=== PATIENT | female | born 1965 | race African-American/Black ===

== ENCOUNTER 2018-01-10 18:09 | Inpatient (IN) ==
[2018-01-10 19:16] LABS: Basophils % 0.3 % (0.0-0.8); Eosinophils # 0.4 10*3/uL (0.0-0.87); Eosinophils % 6.2 % (0.00-10.9); Hematocrit 25.5 VOL% (35.7-47.0); Hemoglobin 8.1 GM/DL (12.0-16.0); Immature Granulocytes % 0.1 %; Immature Granulocytes Absolute 0.01 #; Lymphocytes # 1.9 10*3/uL (1.4-4.0); Lymphocytes % 26.9 % (21.3-54.2); Mean Corpuscular HGB Conc 31.8 GM/DL (32-36); Mean Corpuscular Hemoglobin 30 PG (27-34); Mean Corpuscular Volume 93.4 FL (87-102); Mean Platelet Volume 11.2 FL (9.6-12.0); Monocytes # 0.6 10*3/uL (0.11-0.8); Monocytes % 8.5 % (1.7-12.7); Neutrophils # 4.2 10*3/uL (1.4-7.4); Platelet Count 222 T/CUMM (130-400); Red Blood Count 2.73 MC/CUMM (3.8-5.5); Red Cell Distribution Width 13.6 % (9.3-17.3); White Blood Count 7.2 T/CUMM (4-12)
[2018-01-10 19:44] LABS: Alanine Aminotransferase 13 U/L (13-56); Albumin 3.1 G/DL (3.4-5.0); Alkaline Phosphatase 171 U/L (45-117); Aspartate Amino Transferase 16 U/L (0-37); Bilirubin,Total < 0.39 MG/DL (0.2-1.0); Blood Urea Nitrogen 63 MG/DL (7-18); Calcium 8.5 MG/DL (8.5-10.1); Glucose 123 MG/DL (74-106); Osmolality,Calculated 293.7 MOS/KG (273-304); Sodium 138 MMOL/L (136-145); Total Protein 6.1 G/DL (6.4-8.3)
[2018-01-10 19:50] LABS: Potassium 6.3 MMOL/L (3.5-5.1)
[2018-01-10 21:18] LABS: CKMB % 1.8 %; Troponin I Only < 0.015 NG/ML (0.00-0.045)
[2018-01-10] MEDS ORDERED: SODIUM POLYSTYRENE SULFATE 15 GM/60 ML BOTTLE PO STA (22:46)
[2018-01-10] MEDS ORDERED: CALCIUM CHLORIDE 1,000 MG/10 ML SYRINGE IV STA (22:46)
[2018-01-10] MEDS ORDERED: CALCIUM CHLORIDE 1,000 MG/10 ML SYRINGE IV ONE (23:10)
[2018-01-10] MEDS ORDERED: SODIUM POLYSTYRENE SULFATE 15 GM/60 ML BOTTLE ONE (23:10)
[2018-01-11] MEDS ORDERED: GLUCAGON 1 MG VIAL IM PRN (00:38)
[2018-01-11] MEDS ORDERED: DEXTROSE 50% 25 GM/50 ML VIAL IV PRN (00:38)
[2018-01-11] MEDS ORDERED: ENOXAPARIN 30 MG/0.3 ML SYRINGE ONE (02:36)
[2018-01-11] MEDS: SODIUM CHLORIDE 0.9% 1,000 ML IV SCH ×2 (02:37→10:22)
[2018-01-11] MEDS: ENOXAPARIN 30 MG/0.3 ML SYRINGE SUBCUT SCH ×2 (02:37→10:13)
[2018-01-11] MEDS: SODIUM POLYSTYRENE SULFATE 15 GM/60 ML BOTTLE PO SCH ×2 (03:39→23:20)
[2018-01-11 04:14] LABS: Basophils % 0.4 % (0.0-0.8); Eosinophils # 0.5 10*3/uL (0.0-0.87); Eosinophils % 6.3 % (0.00-10.9); Hematocrit 23.6 VOL% (35.7-47.0); Hemoglobin 7.7 GM/DL (12.0-16.0); Immature Granulocytes % 0.4 %; Immature Granulocytes Absolute 0.03 #; Lymphocytes % 26.8 % (21.3-54.2); Mean Corpuscular HGB Conc 32.6 GM/DL (32-36); Mean Corpuscular Hemoglobin 30 PG (27-34); Mean Corpuscular Volume 91.8 FL (87-102); Mean Platelet Volume 11.5 FL (9.6-12.0); Monocytes # 0.7 10*3/uL (0.11-0.8); Monocytes % 8.9 % (1.7-12.7); Neutrophils # 4.2 10*3/uL (1.4-7.4); Neutrophils % 57.2 % (38.7-73.9); Platelet Count 204 T/CUMM (130-400); Red Blood Count 2.57 MC/CUMM (3.8-5.5); Red Cell Distribution Width 13.7 % (9.3-17.3); White Blood Count 7.3 T/CUMM (4-12)
[2018-01-11 04:15] LABS: Calcium 8.9 MG/DL (8.5-10.1); Osmolality,Calculated 296.4 MOS/KG (273-304)
[2018-01-11 04:19] LABS: Potassium 6.2 MMOL/L (3.5-5.1)
[2018-01-11 04:23] LABS: % Iron Saturation 21.5 % (18-50)
[2018-01-11] MEDS: INSULIN LISPRO 100 UNIT/ML SUBCUT SCH ×4 (07:33→20:46)
[2018-01-11] MEDS ORDERED: INSULIN LISPRO 100 UNIT/ML ONE (11:25)
[2018-01-11] MEDS: SODIUM BICARB INJ 50 MEQ in SODIUM CHLORIDE 0.45% 1,000 ML IV SCH (17:09)
[2018-01-11 17:28] LABS: Apearance,Urine CLEAR (Clear); Bilirubin,Urine Negative (Negative); Blood, Urine Small mg/dL (Negative); Glucose,Urine (UA) 150 mg/dL (Negative); Ketones,Urine Negative (Negative); Nitrite,Urine Negative (Negative); Protein,Urine >=500 MG/DL; RBC,Urine 4 /HPF (0-4); Squamous Epithelial Cell,Urine Occasional /HPF (0-10); Urine Color Straw (Yellow); Urine Specific Gravity 1.007 (1.001-1.035); Urine Urobilinogen < 2.0 EU/DL (0.2-1.0); WBC,Urine <1 /HPF (0-6)
[2018-01-11 18:37] LABS: Microalbum/Creat Ratio Random 7562.5 RATIO (0-30)
[2018-01-11] MEDS: SODIUM BICARBONATE 650 MG TABLET PO SCH (20:47)
[2018-01-12] MEDS: SODIUM BICARB INJ 50 MEQ in SODIUM CHLORIDE 0.45% 1,000 ML IV SCH ×2 (00:37→09:03)
[2018-01-12] MEDS: ENOXAPARIN 30 MG/0.3 ML SYRINGE SUBCUT SCH (05:17)
[2018-01-12 05:34] LABS: Basophils % 0.4 % (0.0-0.8); Eosinophils # 0.4 10*3/uL (0.0-0.87); Eosinophils % 5.8 % (0.00-10.9); Hematocrit 22.9 VOL% (35.7-47.0); Hemoglobin 7.2 GM/DL (12.0-16.0); Immature Granulocytes % 0.3 %; Immature Granulocytes Absolute 0.02 #; Lymphocytes # 2.3 10*3/uL (1.4-4.0); Lymphocytes % 32.2 % (21.3-54.2); Mean Corpuscular HGB Conc 31.4 GM/DL (32-36); Mean Corpuscular Hemoglobin 30 PG (27-34); Mean Corpuscular Volume 93.9 FL (87-102); Mean Platelet Volume 11.8 FL (9.6-12.0); Monocytes # 0.8 10*3/uL (0.11-0.8); Neutrophils # 3.6 10*3/uL (1.4-7.4); Neutrophils % 50.3 % (38.7-73.9); Platelet Count 194 T/CUMM (130-400); Red Blood Count 2.44 MC/CUMM (3.8-5.5); Red Cell Distribution Width 13.2 % (9.3-17.3); White Blood Count 7.1 T/CUMM (4-12)
[2018-01-12 06:28] LABS: Calcium 7.7 MG/DL (8.5-10.1); Free T4 (Free Thyroxine) 0.85 NG/DL (0.76-1.46); Osmolality,Calculated 295.3 MOS/KG (273-304); Potassium 4.9 MMOL/L (3.5-5.1); Risk Ratio 3.5; VLDL CHOLESTEROL 22.6 MG/DL
[2018-01-12] MEDS: SODIUM BICARBONATE 650 MG TABLET PO SCH ×2 (08:57→21:25)
[2018-01-12] MEDS: SODIUM POLYSTYRENE SULFATE 15 GM/60 ML BOTTLE PO SCH (08:57)
[2018-01-12] MEDS: INSULIN LISPRO 100 UNIT/ML SUBCUT SCH ×4 (09:06→21:26)
[2018-01-12] MEDS ORDERED: SKIN HEALING OINT (AQUAPHOR) 50 GM TUBE TOP PRN (11:24)
[2018-01-12] MEDS: amLODIPine 10 MG TABLET PO SCH (11:56)
[2018-01-12] MEDS: ASPIRIN EC 81 MG TABLET PO SCH (11:56)
[2018-01-12] MEDS: CARVEDILOL 12.5 MG TABLET PO SCH ×2 (11:56→21:26)
[2018-01-12] MEDS ORDERED: MAGNESIUM SULF RIDER 4 GM in PREMIX 1 EACH IV PRN (12:38)
[2018-01-12] MEDS ORDERED: MAGNESIUM SULF RIDER 2 GM in PREMIX 1 EACH IV PRN (12:38)
[2018-01-12 13:59] LABS: Hematocrit 25.2 VOL% (35.7-47.0); Hemoglobin 8.3 GM/DL (12.0-16.0)
[2018-01-12] MEDS ORDERED: ATORVASTATIN 40 MG TABLET PO SCH (21:00)
[2018-01-12] MEDS: hydrALAZINE 20 MG/1 ML VIAL IV PRN (21:31)
[2018-01-13] MEDS: SODIUM BICARB INJ 50 MEQ in SODIUM CHLORIDE 0.45% 1,000 ML IV SCH ×2 (01:03→16:04)
[2018-01-13] MEDS ORDERED: ACETAMINOPHEN 500 MG TABLET PO PRN (01:09)
[2018-01-13] MEDS: ENOXAPARIN 30 MG/0.3 ML SYRINGE SUBCUT SCH (06:20)
[2018-01-13] MEDS: SODIUM BICARBONATE 650 MG TABLET PO SCH (08:24)
[2018-01-13] MEDS: amLODIPine 10 MG TABLET PO SCH (08:24)
[2018-01-13] MEDS: ASPIRIN EC 81 MG TABLET PO SCH (08:25)
[2018-01-13] MEDS: INSULIN LISPRO 100 UNIT/ML SUBCUT SCH ×2 (08:25→11:43)
[2018-01-13] MEDS: hydrALAZINE 20 MG/1 ML VIAL IV PRN (08:25)
[2018-01-13] MEDS: SODIUM POLYSTYRENE SULFATE 15 GM/60 ML BOTTLE PO SCH (08:25)
[2018-01-13] MEDS: CARVEDILOL 12.5 MG TABLET PO SCH (08:25)
[2018-01-13 09:02] LABS: HIV Screen (Exposures Only) Negative (Negative)
[2018-01-13 09:30] LABS: Albumin 2.6 G/DL (3.4-5.0); Calcium 7.5 MG/DL (8.5-10.1); Osmolality,Calculated 295.4 MOS/KG (273-304); Potassium 4.5 MMOL/L (3.5-5.1)
[2018-01-13 12:31] LABS: Hepatitis A Ab IgM Quant 0.08 Index; Hepatitis A Ab IgM Result Negative (Negative); Hepatitis B Core IgM Quant 0.23 Index; Hepatitis B Core IgM Result Negative (Negative); Hepatitis B Surface Ag Quant < 0.10 Index; Hepatitis B Surface Ag Result Negative (Negative); Hepatitis C Virus Ab Quant 0.07 Index; Hepatitis C Virus Ab Result Negative (Negative)
[2018-01-13] MEDS ORDERED: CARVEDILOL 25 MG TABLET PO SCH (12:34)
[2018-01-13 15:03] VITALS: BP 168/81
[2018-01-14 13:56] LABS: Glomerular Basement Membrane A < 0.2 U; Myeloperoxidase Antibody < 0.2 U
== END 2018-01-13 15:55 | disposition home or self-care (01) | DRG 683 ==
LOC: N.ED 18:09 → N.EDINP 23:34 → SUATTDRO 23:34 → N.TELEN 01-11 14:28
PROVIDERS: ADMIT Family Medicine; ATTEND Internal Medicine

== ENCOUNTER 2019-10-08 14:01 | Inpatient (IN) ==
[2019-10-08 14:56] LABS: Basophils % 0.2 % (0.0-0.8); Eosinophils # 0.6 10*3/uL (0.0-0.87); Eosinophils % 6.3 % (0.00-10.9); Immature Granulocytes % 1.4 %; Immature Granulocytes Absolute 0.13 #; Lymphocytes # 1.1 10*3/uL (1.4-4.0); Lymphocytes % 11.4 % (21.3-54.2); Mean Corpuscular HGB Conc 29.7 GM/DL (32-36); Mean Corpuscular Volume 90.7 FL (87-102); Mean Platelet Volume 9.9 FL (9.6-12.0); Monocytes % 7.4 % (1.7-12.7); NRBC # 0.02 10*3/uL; Neutrophils % 73.3 % (38.7-73.9); Platelet Count 340 T/CUMM (130-400); Red Blood Count 1.82 MC/CUMM (3.8-5.5); Red Cell Distribution Width 16.3 % (9.3-17.3); White Blood Count 9.4 T/CUMM (4-12)
[2019-10-08 15:01] LABS: Hemoglobin 4.9 GM/DL (12.0-16.0)
[2019-10-08 15:02] LABS: Hematocrit 16.5 VOL% (35.7-47.0)
[2019-10-08 15:06] LABS: PT Patient Result 10.4 SECS (9.6-12.2); Partial Thromboplastin Time 25.9 SECS (20.8-36.0)
[2019-10-08 15:18] LABS: Alanine Aminotransferase 12 U/L (13-56); Albumin 2.8 G/DL (3.4-5.0); Alkaline Phosphatase 113 U/L (45-117); Aspartate Amino Transferase 11 U/L (0-37); Bilirubin,Total < 0.39 MG/DL (0.2-1.0); Blood Urea Nitrogen 79 MG/DL (7-18); Calcium 8.2 MG/DL (8.5-10.1); Estimated Glom Filtration Rate 9 ML/MIN; Glucose 93 MG/DL (74-106); Osmolality,Calculated 302.4 MOS/KG (273-304); Total Protein 6.9 G/DL (6.4-8.3)
[2019-10-08 15:56] LABS: Apearance,Urine CLEAR (Clear); Bilirubin,Urine Negative (Negative); Blood, Urine Small mg/dL (Negative); Glucose,Urine (UA) Negative (Negative); Hyaline Casts,Urine 3 /LPF (0-3); Ketones,Urine Negative (Negative); Mucus,Urine Occasional /LPF (Occasional); Nitrite,Urine Negative (Negative); Protein,Urine 100 MG/DL; RBC,Urine 1 /HPF (0-4); Squamous Epithelial Cell,Urine Occasional /HPF (0-10); Urine Color Straw (Yellow); Urine Urobilinogen < 2.0 EU/DL (0.2-1.0)
[2019-10-08] MEDS ORDERED: diphenhydrAMINE 50 MG/1 ML VIAL IV PRN (16:06)
[2019-10-08] MEDS ORDERED: SODIUM CHLORIDE 0.9% 1,000 ML IV PRN (16:06)
[2019-10-08] MEDS ORDERED: FUROSEMIDE 20 MG/2 ML VIAL IV PRN (16:06)
[2019-10-08] MEDS ORDERED: ACETAMINOPHEN 325 MG TABLET PO PRN (16:33)
[2019-10-08] MEDS ORDERED: GLUCAGON 1 MG VIAL IM PRN (17:08)
[2019-10-08] MEDS ORDERED: DEXTROSE 10% 250 ML BAG IV PRN (17:08)
[2019-10-08 18:52] LABS: Hemoglobin 5.3 GM/DL (12.0-16.0)
[2019-10-08 18:53] LABS: Hematocrit 17.1 VOL% (35.7-47.0)
[2019-10-08] MEDS: INSULIN LISPRO 100 UNIT/ML SUBCUT SCH (20:28)
[2019-10-08] MEDS: PANTOPRAZOLE INJ 200 MG in SODIUM CHLORIDE 0.9% 250 ML IV SCH (20:52)
[2019-10-08] MEDS: SODIUM CHLORIDE 0.9% 1,000 ML IV SCH (20:52)
[2019-10-08] MEDS: AZITHROMYCIN INJ 500 MG in SODIUM CHLORIDE 0.9% 250 ML IV SCH (20:53)
[2019-10-08] MEDS: cefTRIAXone 1,000 MG in SYRINGE 1 EACH IV SCH (21:08)
[2019-10-08] MEDS: ONDANSETRON 4 MG/2 ML VIAL IV PRN (21:12)
[2019-10-09] MEDS ORDERED: FUROSEMIDE 20 MG/2 ML VIAL IV PRN ×2 (00:17→00:30)
[2019-10-09 04:48] LABS: PT Patient Result 10.7 SECS (9.6-12.2)
[2019-10-09 05:04] LABS: Basophils % 0.3 % (0.0-0.8); Eosinophils # 0.6 10*3/uL (0.0-0.87); Hematocrit 25.6 VOL% (35.7-47.0); Immature Granulocytes % 1.4 %; Immature Granulocytes Absolute 0.17 #; Lymphocytes # 1.2 10*3/uL (1.4-4.0); Lymphocytes % 10.5 % (21.3-54.2); Mean Corpuscular Volume 88.9 FL (87-102); Mean Platelet Volume 9.7 FL (9.6-12.0); Monocytes % 9.2 % (1.7-12.7); Neutrophils % 73.6 % (38.7-73.9); Platelet Count 306 T/CUMM (130-400); Red Cell Distribution Width 14.9 % (9.3-17.3); White Blood Count 11.8 T/CUMM (4-12)
[2019-10-09 05:05] LABS: Red Blood Count 2.88 MC/CUMM (3.8-5.5)
[2019-10-09 05:06] LABS: Hemoglobin 8.2 GM/DL (12.0-16.0)
[2019-10-09 05:13] LABS: Albumin 2.7 G/DL (3.4-5.0); Calcium 7.9 MG/DL (8.5-10.1); Osmolality,Calculated 306.8 MOS/KG (273-304); Risk Ratio 5.82; Thyroid Stimulating Hormone 1.75 uIU/ml (0.358-3.74); Total Protein 6.7 G/DL (6.4-8.3); VLDL CHOLESTEROL 29.6 MG/DL
[2019-10-09] MEDS ORDERED: MAGNESIUM SULF RIDER 1 GM in PREMIX 1 EACH IV ONE (08:13)
[2019-10-09] MEDS: INSULIN LISPRO 100 UNIT/ML SUBCUT SCH ×4 (08:35→21:00)
[2019-10-09] MEDS: amLODIPine 10 MG TABLET PO SCH (08:36)
[2019-10-09 08:37] LABS: Hemoglobin 8.3 GM/DL (12.0-16.0)
[2019-10-09] MEDS: SODIUM CHLORIDE 0.9% 1,000 ML IV SCH (08:37)
[2019-10-09] MEDS: SODIUM BICARB INJ 50 MEQ in SODIUM CHLORIDE 0.45% 1,000 ML IV SCH ×2 (09:21→22:22)
[2019-10-09 12:33] LABS: Hematocrit 30.8 VOL% (35.7-47.0); Hemoglobin 9.9 GM/DL (12.0-16.0)
[2019-10-09] MEDS: cefTRIAXone 1,000 MG in SYRINGE 1 EACH IV SCH (16:56)
[2019-10-09] MEDS: AZITHROMYCIN INJ 500 MG in SODIUM CHLORIDE 0.9% 250 ML IV SCH (17:00)
[2019-10-09] MEDS: PANTOPRAZOLE INJ 200 MG in SODIUM CHLORIDE 0.9% 250 ML IV SCH (17:13)
[2019-10-09] MEDS: PANTOPRAZOLE 40 MG VIAL IV SCH (20:48)
[2019-10-09] MEDS: carvediloL 25 MG TABLET PO SCH (20:48)
[2019-10-10 05:29] LABS: PT Patient Result 10.6 SECS (9.6-12.2)
[2019-10-10 05:40] LABS: Osmolality,Calculated 298.4 MOS/KG (273-304)
[2019-10-10 05:43] LABS: Albumin 2.5 G/DL (3.4-5.0); Bilirubin,Total 0.4 MG/DL (0.2-1.0); Calcium 7.7 MG/DL (8.5-10.1); Osmolality,Calculated 300.1 MOS/KG (273-304); Total Protein 6.2 G/DL (6.4-8.3)
[2019-10-10 06:49] LABS: Basophils % 0.3 % (0.0-0.8); Eosinophils # 0.5 10*3/uL (0.0-0.87); Eosinophils % 4.4 % (0.00-10.9); Hematocrit 26.3 VOL% (35.7-47.0); Hemoglobin 8.6 GM/DL (12.0-16.0); Immature Granulocytes % 1.3 %; Immature Granulocytes Absolute 0.13 #; Lymphocytes # 1.2 10*3/uL (1.4-4.0); Lymphocytes % 11.6 % (21.3-54.2); Mean Corpuscular HGB Conc 32.7 GM/DL (32-36); Mean Corpuscular Volume 87.4 FL (87-102); Mean Platelet Volume 9.7 FL (9.6-12.0); Monocytes % 7.8 % (1.7-12.7); Neutrophils % 74.6 % (38.7-73.9); Platelet Count 324 T/CUMM (130-400); Red Blood Count 3.01 MC/CUMM (3.8-5.5); Red Cell Distribution Width 15.6 % (9.3-17.3); White Blood Count 10.1 T/CUMM (4-12)
[2019-10-10 07:20] LABS: Hepatitis B Core IgM Quant < 0.05 Index; Hepatitis B Surface Ag Quant < 0.10 Index; Hepatitis B Surface Ag Result Negative (Negative); Hepatitis C Virus Ab Result Negative (Negative)
[2019-10-10] MEDS ORDERED: LIDOCAINE 100 MG/5 ML SYRINGE ONE (10:00)
[2019-10-10] MEDS ORDERED: PROPOFOL 200 MG/20 ML VIAL IV ONE (10:00)
[2019-10-10] MEDS: INSULIN LISPRO 100 UNIT/ML SUBCUT SCH ×4 (11:07→22:21)
[2019-10-10] MEDS: cefTRIAXone 1,000 MG in SYRINGE 1 EACH IV SCH (15:15)
[2019-10-10] MEDS: carvediloL 25 MG TABLET PO SCH ×2 (15:15→21:49)
[2019-10-10] MEDS: amLODIPine 10 MG TABLET PO SCH (15:15)
[2019-10-10] MEDS: PANTOPRAZOLE 40 MG VIAL IV SCH (15:15)
[2019-10-10] MEDS: AZITHROMYCIN 250 MG TABLET PO SCH (15:15)
[2019-10-10] MEDS: SODIUM BICARB INJ 50 MEQ in SODIUM CHLORIDE 0.45% 1,000 ML IV SCH (17:26)
[2019-10-10] MEDS: PANTOPRAZOLE 40 MG TABLET PO SCH (21:46)
[2019-10-11] MEDS: SODIUM BICARB INJ 50 MEQ in SODIUM CHLORIDE 0.45% 1,000 ML IV SCH ×2 (03:49→17:30)
[2019-10-11 06:18] LABS: Basophils % 0.2 % (0.0-0.8); Eosinophils # 0.4 10*3/uL (0.0-0.87); Eosinophils % 4.4 % (0.00-10.9); Hematocrit 21.9 VOL% (35.7-47.0); Hemoglobin 7.1 GM/DL (12.0-16.0); Immature Granulocytes % 1.3 %; Immature Granulocytes Absolute 0.11 #; Lymphocytes # 1.3 10*3/uL (1.4-4.0); Lymphocytes % 14.8 % (21.3-54.2); Mean Corpuscular HGB Conc 32.4 GM/DL (32-36); Mean Corpuscular Volume 87.6 FL (87-102); Mean Platelet Volume 9.9 FL (9.6-12.0); Neutrophils % 68.3 % (38.7-73.9); Platelet Count 270 T/CUMM (130-400); Red Cell Distribution Width 15.4 % (9.3-17.3); White Blood Count 8.5 T/CUMM (4-12)
[2019-10-11 06:20] LABS: PT Patient Result 10.5 SECS (9.6-12.2)
[2019-10-11 07:00] LABS: Albumin 2.4 G/DL (3.4-5.0); Bilirubin,Total 0.4 MG/DL (0.2-1.0); Calcium 7.5 MG/DL (8.5-10.1); Total Protein 6.1 G/DL (6.4-8.3)
[2019-10-11 07:13] LABS: Calcium 7.5 MG/DL (8.5-10.1); Osmolality,Calculated 295.5 MOS/KG (273-304)
[2019-10-11] MEDS ORDERED: MAGNESIUM SULF RIDER 4 GM in PREMIX 1 EACH IV PRN (08:20)
[2019-10-11] MEDS ORDERED: MAGNESIUM SULF RIDER 2 GM in PREMIX 1 EACH IV PRN (08:20)
[2019-10-11] MEDS: INSULIN LISPRO 100 UNIT/ML SUBCUT SCH ×4 (09:34→21:30)
[2019-10-11] MEDS: amLODIPine 10 MG TABLET PO SCH (09:40)
[2019-10-11] MEDS: AZITHROMYCIN 250 MG TABLET PO SCH (09:40)
[2019-10-11] MEDS: carvediloL 25 MG TABLET PO SCH ×2 (09:41→21:31)
[2019-10-11] MEDS: cefTRIAXone 1,000 MG in SYRINGE 1 EACH IV SCH (09:41)
[2019-10-11] MEDS: PANTOPRAZOLE 40 MG TABLET PO SCH ×2 (09:41→21:31)
[2019-10-11] MEDS: hydrALAZINE 25 MG TABLET PO SCH ×2 (09:43→21:31)
[2019-10-11 09:51] LABS: Hematocrit 22.8 VOL% (35.7-47.0); Hemoglobin 7.4 GM/DL (12.0-16.0)
[2019-10-11] MEDS ORDERED: SODIUM CHLORIDE 0.9% 1,000 ML IV PRN (11:51)
[2019-10-11] MEDS: ONDANSETRON 4 MG/2 ML VIAL IV PRN (14:02)
[2019-10-11 19:14] LABS: Hematocrit 26.2 VOL% (35.7-47.0); Hemoglobin 8.5 GM/DL (12.0-16.0)
[2019-10-12] MEDS: SODIUM BICARB INJ 50 MEQ in SODIUM CHLORIDE 0.45% 1,000 ML IV SCH ×3 (04:17→17:05)
[2019-10-12 07:19] LABS: Basophils % 0.3 % (0.0-0.8); Eosinophils # 0.4 10*3/uL (0.0-0.87); Eosinophils % 5.2 % (0.00-10.9); Hematocrit 27.2 VOL% (35.7-47.0); Hemoglobin 8.9 GM/DL (12.0-16.0); Immature Granulocytes Absolute 0.07 #; Lymphocytes # 1.4 10*3/uL (1.4-4.0); Lymphocytes % 18.9 % (21.3-54.2); Mean Corpuscular HGB Conc 32.7 GM/DL (32-36); Mean Corpuscular Volume 87.2 FL (87-102); Mean Platelet Volume 9.7 FL (9.6-12.0); Monocytes % 10.6 % (1.7-12.7); Platelet Count 259 T/CUMM (130-400); Red Blood Count 3.12 MC/CUMM (3.8-5.5); Red Cell Distribution Width 15.5 % (9.3-17.3); White Blood Count 7.2 T/CUMM (4-12)
[2019-10-12 07:45] LABS: Calcium 7.3 MG/DL (8.5-10.1); Osmolality,Calculated 294.4 MOS/KG (273-304)
[2019-10-12] MEDS: INSULIN LISPRO 100 UNIT/ML SUBCUT SCH ×4 (09:21→23:44)
[2019-10-12] MEDS: cefTRIAXone 1,000 MG in SYRINGE 1 EACH IV SCH (09:22)
[2019-10-12] MEDS: AZITHROMYCIN 250 MG TABLET PO SCH (09:22)
[2019-10-12] MEDS: carvediloL 25 MG TABLET PO SCH ×2 (09:22→20:49)
[2019-10-12] MEDS: amLODIPine 10 MG TABLET PO SCH (09:23)
[2019-10-12] MEDS: PANTOPRAZOLE 40 MG TABLET PO SCH ×2 (09:23→20:49)
[2019-10-12] MEDS: hydrALAZINE 25 MG TABLET PO SCH ×2 (09:23→20:49)
[2019-10-13] MEDS: SODIUM BICARB INJ 50 MEQ in SODIUM CHLORIDE 0.45% 1,000 ML IV SCH (02:00)
[2019-10-13 05:09] LABS: Basophils % 0.5 % (0.0-0.8); Eosinophils # 0.4 10*3/uL (0.0-0.87); Eosinophils % 5.1 % (0.00-10.9); Hematocrit 25.6 VOL% (35.7-47.0); Hemoglobin 8.1 GM/DL (12.0-16.0); Immature Granulocytes % 0.9 %; Immature Granulocytes Absolute 0.07 #; Lymphocytes # 1.2 10*3/uL (1.4-4.0); Lymphocytes % 16.2 % (21.3-54.2); Mean Corpuscular HGB Conc 31.6 GM/DL (32-36); Mean Corpuscular Volume 90.1 FL (87-102); Mean Platelet Volume 9.7 FL (9.6-12.0); Monocytes % 11.3 % (1.7-12.7); Platelet Count 241 T/CUMM (130-400); Red Blood Count 2.84 MC/CUMM (3.8-5.5); Red Cell Distribution Width 15.5 % (9.3-17.3); White Blood Count 7.7 T/CUMM (4-12)
[2019-10-13 05:44] LABS: Calcium 7.4 MG/DL (8.5-10.1); Osmolality,Calculated 294.3 MOS/KG (273-304)
[2019-10-13 07:34] VITALS: BP 162/79
[2019-10-13] MEDS: cefTRIAXone 1,000 MG in SYRINGE 1 EACH IV SCH (08:45)
[2019-10-13] MEDS: PANTOPRAZOLE 40 MG TABLET PO SCH (08:46)
[2019-10-13] MEDS: hydrALAZINE 25 MG TABLET PO SCH (08:46)
[2019-10-13] MEDS: amLODIPine 10 MG TABLET PO SCH (08:46)
[2019-10-13] MEDS: carvediloL 25 MG TABLET PO SCH (08:46)
[2019-10-13] MEDS: INSULIN LISPRO 100 UNIT/ML SUBCUT SCH ×2 (08:47→14:48)
== END 2019-10-13 15:20 | disposition home or self-care (01) | DRG 377 ==
LOC: N.ED 14:01 → N.EDINP 16:08 → SUATTDRO 16:08 → N.CC 17:58 → N.EDINP 18:06 → N.2E 10-09 15:35
PROVIDERS: ADMIT Internal Medicine; ATTEND Internal Medicine

== ENCOUNTER 2021-12-28 14:43 | Inpatient (IN) ==
[2021-12-28] MEDS ORDERED: ONDANSETRON 4 MG/2 ML VIAL IV STA (19:10)
[2021-12-28] MEDS ORDERED: LABETALOL 20 MG/4 ML SYRINGE IV STA (19:12)
[2021-12-28] MEDS ORDERED: ASPIRIN EC 325 MG TABLET PO STA (19:12)
[2021-12-28 19:32] LABS: Basophils % 0.2 % (0.0-0.8); Eosinophils # 0.3 10*3/uL (0.0-0.87); Eosinophils % 7.3 % (0.00-10.9); Hematocrit 21.6 VOL% (35.7-47.0); Hemoglobin 6.9 GM/DL (12.0-16.0); Immature Granulocytes % 0.6 %; Immature Granulocytes Absolute 0.03 #; Lymphocytes # 0.8 10*3/uL (1.4-4.0); Lymphocytes % 16.6 % (21.3-54.2); Mean Corpuscular HGB Conc 31.9 GM/DL (32-36); Mean Corpuscular Volume 96.4 FL (87-102); Mean Platelet Volume 10.9 FL (9.6-12.0); Monocytes % 11.2 % (1.7-12.7); Neutrophils % 64.1 % (38.7-73.9); Platelet Count 154 T/CUMM (130-400); Red Blood Count 2.24 MC/CUMM (3.8-5.5); Red Cell Distribution Width 15.7 % (9.3-17.3); White Blood Count 4.7 T/CUMM (4-12)
[2021-12-28 19:51] LABS: Alanine Aminotransferase 11 U/L (13-56); Albumin 2.4 G/DL (3.4-5.0); Alkaline Phosphatase 723 U/L (45-117); Aspartate Amino Transferase 16 U/L (0-37); Bilirubin,Total < 0.39 MG/DL (0.20-1.00); Blood Urea Nitrogen 64 MG/DL (7-18); Calcium 7.1 MG/DL (8.5-10.1); Carbon Dioxide 25 MMOL/L (21-32); Estimated Glom Filtration Rate 5 ML/MIN; Glucose 88 MG/DL (74-106); Osmolality,Calculated 293.5 MOS/KG (273-304); Sodium 139 MMOL/L (136-145); Total Protein 5.7 G/DL (6.4-8.2)
[2021-12-28 20:50] LABS: INR 1.1; PT Patient Result 12.1 SECS (10.5-12.0)
[2021-12-28 21:01] LABS: Barbiturates Screen,Urine Negative (Negative); Benzodiazepines Screen,Urine Negative (Negative); Cannabinoid Screen,Urine Negative (Negative); Opiate Screen,Urine Negative (Negative); Phencyclidine Screen,Urine Negative (Negative)
[2021-12-28] MEDS ORDERED: hydrALAZINE 20 MG/1 ML VIAL IV STA (21:14)
[2021-12-28] MEDS ORDERED: LABETALOL 20 MG/4 ML SYRINGE IV PRN (22:26)
[2021-12-28] MEDS ORDERED: SODIUM CHLORIDE 0.9% 1,000 ML IV PRN (23:09)
[2021-12-29] MEDS ORDERED: ENOXAPARIN 30 MG/0.3 ML SYRINGE SUBCUT SCH (08:00)
[2021-12-29 08:34] LABS: Basophils % 0.3 % (0.0-0.8); Eosinophils # 0.4 10*3/uL (0.0-0.87); Eosinophils % 6.7 % (0.00-10.9); Hematocrit 31.4 VOL% (35.7-47.0); Immature Granulocytes % 0.3 %; Immature Granulocytes Absolute 0.02 #; Lymphocytes % 16.5 % (21.3-54.2); Mean Corpuscular HGB Conc 31.5 GM/DL (32-36); Mean Corpuscular Volume 94.3 FL (87-102); Mean Platelet Volume 10.5 FL (9.6-12.0); Monocytes % 9.8 % (1.7-12.7); Neutrophils % 66.4 % (38.7-73.9); Platelet Count 163 T/CUMM (130-400); Red Blood Count 3.33 MC/CUMM (3.8-5.5); Red Cell Distribution Width 16.8 % (9.3-17.3); White Blood Count 5.9 T/CUMM (4-12)
[2021-12-29 08:35] LABS: Hemoglobin 9.9 GM/DL (12.0-16.0)
[2021-12-29 08:58] LABS: Calcium 8.8 MG/DL (8.5-10.1); Osmolality,Calculated 294.7 MOS/KG (273-304); Risk Ratio 4.76; VLDL Cholesterol 24.8 MG/DL
[2021-12-29] MEDS: carvediloL 12.5 MG TABLET PO SCH ×2 (09:00→20:52)
[2021-12-29] MEDS ORDERED: ASPIRIN 325 MG TABLET PO SCH (09:00)
[2021-12-29] MEDS: CHOLECALCIFEROL 1,000 UNIT TABLET PO SCH (09:00)
[2021-12-29] MEDS: amLODIPine 10 MG TABLET PO SCH (09:15)
[2021-12-29] MEDS: hydrALAZINE 25 MG TABLET PO SCH ×2 (09:30→20:52)
[2021-12-29] MEDS: PANTOPRAZOLE 40 MG TABLET PO SCH (12:33)
[2021-12-29] MEDS ORDERED: LABETALOL 20 MG/4 ML SYRINGE IV ONE (13:35)
[2021-12-29] MEDS: ATORVASTATIN 80 MG TABLET PO SCH (20:52)
[2021-12-29] MEDS ORDERED: ATORVASTATIN 40 MG TABLET PO SCH (21:00)
[2021-12-30] MEDS: hydrALAZINE 25 MG TABLET PO SCH ×2 (08:58→21:38)
[2021-12-30] MEDS: carvediloL 12.5 MG TABLET PO SCH ×2 (08:59→21:37)
[2021-12-30] MEDS: amLODIPine 10 MG TABLET PO SCH (08:59)
[2021-12-30] MEDS: ASPIRIN EC 81 MG TABLET PO SCH (08:59)
[2021-12-30] MEDS: CHOLECALCIFEROL 1,000 UNIT TABLET PO SCH (08:59)
[2021-12-30] MEDS: PANTOPRAZOLE 40 MG TABLET PO SCH (08:59)
[2021-12-30] MEDS: ATORVASTATIN 80 MG TABLET PO SCH (21:38)
[2021-12-31] MEDS: amLODIPine 10 MG TABLET PO SCH (09:15)
[2021-12-31] MEDS: CHOLECALCIFEROL 1,000 UNIT TABLET PO SCH (09:15)
[2021-12-31] MEDS: ASPIRIN EC 81 MG TABLET PO SCH (09:15)
[2021-12-31] MEDS: carvediloL 12.5 MG TABLET PO SCH (09:15)
[2021-12-31] MEDS: PANTOPRAZOLE 40 MG TABLET PO SCH (09:15)
[2021-12-31] MEDS: hydrALAZINE 25 MG TABLET PO SCH (09:15)
[2021-12-31 12:07] LABS: Hematocrit 31.4 VOL% (35.7-47.0)
[2021-12-31 16:48] VITALS: BP 149/71
== END 2021-12-31 19:07 | disposition home or self-care (01) | DRG 304 ==
LOC: EDUNIT# → EDBD → N.EDINP 14:43 → N.ED 14:43 → SUATTDRO 22:26 → N.3E 12-29 11:00 → SUATTDRO 12-30 10:15
PROVIDERS: ADMIT Hospitalist; ATTEND Internal Medicine